=== PATIENT | male | born 1965 | race Caucasian/White ===

== ENCOUNTER → 2019-04-29 | Outpatient (CLI) | payer BC ==
--- NOTE | 2019-04-29 09:15 | XR ---
EXAMINATION TYPE: XR cervical spine comp DATE OF EXAM: 04/29/2019 TECHNIQUE: Frontal, lateral, oblique, swimmers, and open mouth view of the cervical spine are obtaine d. HISTORY: M54.2 Cervicalgia COMPARISON: None FINDINGS: The cervical spine is visualized in its entirety from C1 thru the top of T1 level, it is s atisfactory in alignment without evidence of acute fracture or dislocation. There is intervertebral d isc space narrowing at C6-C7 with small anterior osteophytes. There is straightening of usual cervica l lordosis. Oblique images are unremarkable with no neural foraminal narrowing radiographically. The pre-vertebral soft tissue appears within normal limits. The C1-C2 articulation is within normal dubon its on the open mouth view. IMPRESSION: 1. No acute fracture or malalignment is seen in the cervical spine. 2. Straightening of usual cervical lordosis that may relate to muscular sprain/spasm or patient posit ioning. 3. Degenerative disc disease as moderate at C6-C7 focally.
== END | disposition home or self-care (01) ==
LOC: RADXRMAIN 08:31
PROVIDERS: ATTEND Nurse Practitioner Gerontology
DX: M50.323 Other cervical disc degeneration at C6-C7 level (principal)
CPT/HCPCS: 72050